=== PATIENT | female | born 2000 | race Caucasian/White ===

== ENCOUNTER 2022-02-04 22:06 | Inpatient (IN) ==
[2022-02-04] MEDS ORDERED: LR 1,000 ML IV 1,000 ML IV ONE ×3 (22:24→23:36)
[2022-02-04 22:33] VITALS: BMI 24.7
[2022-02-04 22:33] LABS: BILIRUBIN,URINE NEGATIVE (NEGATIVE); BLOOD/HEMOGLOBIN,URINE NEGATIVE (NEGATIVE); GLUCOSE, URINE NEGATIVE (NEGATIVE); KETONES,URINE NEGATIVE (NEGATIVE); LEUKOCYTE ESTERASE ,URINE 1+ (NEGATIVE); NITRITES,URINE NEGATIVE (NEGATIVE); PROTEIN,URINE NEGATIVE (NEGATIVE); UROBILINOGEN,URINE NORMAL (NORMAL)
[2022-02-04 22:35] LABS: AMNISURE ROM TEST THERE IS A RUPTURE (NO RUPTURE)
[2022-02-04 22:38] LABS: APPEARANCE,URINE CLEAR (CLEAR); COLOR,URINE YELLOW (YELLOW)
[2022-02-04 22:39] LABS: BACTERIA,URINE TRACE /HPF (NEGATIVE); SQUAMOUS EPITHELIAL CELL,UR MODERATE /HPF (NEGATIVE)
[2022-02-04] MEDS ORDERED: ANCEF VIAL 1 GRAM IVP ONE (23:15)
[2022-02-04] MEDS ORDERED: PEPCID 20 MG VIAL IVP ONE (23:17)
[2022-02-04] MEDS ORDERED: ZOFRAN INJ 4 MG VIAL IVP ONE (23:17)
[2022-02-04] MEDS ORDERED: REGLAN INJ 10 MG VIAL IVP ONE (23:18)
[2022-02-04] MEDS ORDERED: ZOFRAN INJ 4 MG VIAL IVP PRN (23:19)
[2022-02-04] MEDS ORDERED: BENADRYL INJ 50 MG VIAL IVP PRN (23:19)
[2022-02-04] MEDS ORDERED: TORADOL 30 MG VIAL IVP PRN (23:19)
[2022-02-04 23:23] LABS: MEAN PLATELET VOLUME 8.6 fL (7.4-11.0)
[2022-02-04 23:29] LABS: BASOPHILS % (AUTO) 0.5 % (0.2-1.0); EOSINOPHILS # (AUTO) 0.3 x10^3/uL (0.0-0.2); EOSINOPHILS % (AUTO) 3.5 % (0.9-2.9); HEMOGLOBIN 10.6 g/dL (12.0-16.0); LYMPHOCYTES # (AUTO) 1.7 X10^3/uL (1.3-2.9); LYMPHOCYTES % (AUTO) 22.6 % (21.0-51.0); MEAN CORPUSCULAR HEMOGLOBIN 26.1 pg (27.0-34.0); MEAN CORPUSCULAR VOLUME 79.1 fL (80.0-100.0); MONOCYTES # (AUTO) 0.6 x10^3/uL (0.3-0.8); MONOCYTES % (AUTO) 7.8 % (0.0-13.0); NEUTROPHILS # (AUTO) 4.9 x10^3/uL (2.2-4.8); NEUTROPHILS % (AUTO) 65.6 % (42.0-75.0); RED BLOOD COUNT 4.05 X10^6/uL (3.5-5.4); RED CELL DISTRIBUTION WIDTH 16.4 % (11.6-16.5); WHITE BLOOD COUNT 7.5 X10^3/uL (3.6-10.0)
[2022-02-04 23:31] LABS: ALANINE AMINOTRANSFERASE 10 Units/L (12-78); ALBUMIN 2.4 g/dL (3.4-5.0); ALKALINE PHOSPHATASE 177 Units/L (45-150); ASPARTATE AMINO TRANSFERASE 19 Units/L (15-37); BLOOD UREA NITROGEN 7 mg/dL (7-18); CALCIUM 8.6 mg/dL (8.5-10.1); CARBON DIOXIDE 22.6 mmol/L (21-32); CHLORIDE 107 mmol/L (98-107); COR CA(FOR HYPOALB) 9.9 mg/dL (8.5-10.1); CREATININE 0.69 mg/dL (0.55-1.02); SODIUM 138 mmol/L (136-145); TOTAL PROTEIN 6.4 g/dL (6.4-8.2); eGFR NON BLACK RACES > 60 (>60)
[2022-02-04] MEDS ORDERED: REGLAN INJ 10 MG VIAL ONE (23:35)
[2022-02-04] MEDS ORDERED: ZOFRAN INJ 4 MG VIAL ONE (23:36)
[2022-02-04] MEDS ORDERED: D5 1/2 NS 1,000 mL + PITOCIN 20 UNITS/L IV 20 UNITS/1,000 ML BAG IV ONE (23:36)
[2022-02-04] MEDS ORDERED: PEPCID 20 MG VIAL ONE (23:36)
[2022-02-04] MEDS ORDERED: NS 100 ML IV 200 ML ONE (23:36)
[2022-02-04] MEDS ORDERED: ANCEF VIAL 1 GRAM ONE (23:36)
[2022-02-04] MEDS ORDERED: D5 1/2 NS 1,000 ML 1,000 ML IV SCH ×2 (23:45)
[2022-02-04] MEDS ORDERED: MARCAINE SPINAL ONE (23:54)
[2022-02-04] MEDS ORDERED: DILAUDID INJ ONE (23:55)
[2022-02-04] MEDS ORDERED: XYLOCAINE-MPF 1% ONE (23:55)
[2022-02-05] MEDS ORDERED: NEO-SYNEPHRINE INJ ONE (00:27)
[2022-02-05] MEDS ORDERED: EPHEDRINE SULFATE INJ ONE (00:27)
[2022-02-05] MEDS: PERCOCET TAB 5/325 MG PO PRN ×2 (00:30→19:21)
[2022-02-05] MEDS ORDERED: PITOCIN ONE ×2 (00:41→07:31)
[2022-02-05] MEDS ORDERED: NARCAN INJ ONE (01:00)
[2022-02-05] MEDS ORDERED: PHENERGAN INJ 25 MG IM PRN ×2 (01:10→01:52)
[2022-02-05] MEDS ORDERED: ZOFRAN INJ 4 MG VIAL IVP PRN (01:10)
[2022-02-05] MEDS ORDERED: DILAUDID INJ IVP PRN (01:10)
[2022-02-05] MEDS ORDERED: BENADRYL INJ 50 MG VIAL IVP PRN (01:10)
[2022-02-05] MEDS ORDERED: BARHEMSYS INJ IVP PRN (01:10)
[2022-02-05] MEDS ORDERED: ADACEL or BOOSTRIX TDaP VACCINE IM ONE ×2 (01:52→21:47)
[2022-02-05] MEDS ORDERED: MYLICON TAB 80 MG CHEW PO PRN (01:52)
[2022-02-05] MEDS ORDERED: D5 1/2 NS 1,000 ML 1,000 ML with PITOCIN 20 UNITS IV SCH ×2 (02:00)
[2022-02-05] MEDS: MOTRIN TAB 800 MG PO PRN ×2 (03:21→16:13)
[2022-02-05 04:13] LABS: HEMATOCRIT 34.5 % (36.0-47.0); HEMOGLOBIN 11.2 g/dL (12.0-16.0)
[2022-02-05] MEDS: D5 1/2 NS 1,000 ML 1,000 ML with PITOCIN 20 UNITS IV SCH ×4 (07:15→16:05)
[2022-02-05] MEDS ORDERED: D5 1/2 NS 1,000 ML 1,000 ML IV ONE (07:31)
[2022-02-05] MEDS: PRENATAL PLUS PO SCH (09:28)
[2022-02-05] MEDS ORDERED: METHERGINE PO SCH (09:30)
[2022-02-05] MEDS ORDERED: D5 1/2 NS 1,000 mL + PITOCIN 20 UNITS/L IV 20 UNITS/1,000 ML BAG IV ONE (09:30)
[2022-02-05] MEDS: METHERGINE PO SCH ×4 (09:50→20:00)
[2022-02-05] MEDS ORDERED: PERCOCET TAB 5/325 MG PO PRN (13:35)
[2022-02-05] MEDS ORDERED: COLACE CAP 100 MG PO SCH (21:00)
[2022-02-06] MEDS: D5 1/2 NS 1,000 ML 1,000 ML with PITOCIN 20 UNITS IV SCH ×4 (00:31→09:59)
[2022-02-06] MEDS: PERCOCET TAB 5/325 MG PO PRN (05:55)
[2022-02-06 06:12] LABS: BASOPHILS % (AUTO) 0.3 % (0.2-1.0); EOSINOPHILS # (AUTO) 0.3 x10^3/uL (0.0-0.2); EOSINOPHILS % (AUTO) 2.8 % (0.9-2.9); HEMATOCRIT 30.2 % (36.0-47.0); HEMOGLOBIN 10.1 g/dL (12.0-16.0); LYMPHOCYTES # (AUTO) 1.6 X10^3/uL (1.3-2.9); LYMPHOCYTES % (AUTO) 15.1 % (21.0-51.0); MEAN CORPUSCULAR HEMOGLOBIN 26.1 pg (27.0-34.0); MEAN CORPUSCULAR HGB CONC 33.3 g/dL (33.0-35.0); MEAN CORPUSCULAR VOLUME 78.5 fL (80.0-100.0); MEAN PLATELET VOLUME 8.2 fL (7.4-11.0); MONOCYTES % (AUTO) 9.2 % (0.0-13.0); NEUTROPHILS # (AUTO) 7.9 x10^3/uL (2.2-4.8); NEUTROPHILS % (AUTO) 72.6 % (42.0-75.0); RED BLOOD COUNT 3.85 X10^6/uL (3.5-5.4); RED CELL DISTRIBUTION WIDTH 16.5 % (11.6-16.5); WHITE BLOOD COUNT 10.8 X10^3/uL (3.6-10.0)
[2022-02-06] MEDS: PRENATAL PLUS PO SCH (08:23)
[2022-02-06] MEDS: METHERGINE PO SCH ×2 (08:36→12:25)
[2022-02-06] MEDS ORDERED: DULCOLAX SUPPOSITORY 10 MG RECTAL ONE (09:35)
[2022-02-06 13:27] VITALS: BP 110/52
== END 2022-02-06 13:00 | disposition home or self-care (01) | DRG 788 ==
LOC: ER 22:06 → LD 23:00 → MED/SURG 02-05 01:45
PROVIDERS: ADMIT Obstetrics & Gynecology Obstetrics; ATTEND Obstetrics & Gynecology Obstetrics

== ENCOUNTER 2022-02-09 15:43 | Observation (INO) ==
--- NOTE | 2022-02-09 15:58 | DR.SOBA ---
HPI Time Seen Time Seen by Provider: 02/09/22 15:54 Complaints Chief Complaint Doctors Comments: 21 y/o female, s/p 5 days ago, presents with shortness of breath since last pm. Gradual onset, steadiy worsening. + slight cough, not productive. Running a low grade temp here. Denies chest pain, leg pain or swelling. + distant h/o asthma as a child. Having pain of the site. COVID-19 Coronavirus risk:travel/contact w/high risk person: No Has patient experienced Coronavirus symptoms: No Reviewed Nurses Notes Reviewed: Yes Source History Provided: Patient Mode of Arrival Mode of Arrival: Wheelchair PMH PMH Past Medical History: Anemia Past Surgical History: Yes Surgical History: Social History Do you use any recreational Drugs:: No ROS Review of Systems Constitutional: Fever (low grade) Eyes: No Symptoms Reported ENTM: No Symptoms Reported Respiratoy: Non-Productive Cough and Short of Breath Cardiovascular: No Symptoms Reported Gastrointestinal/Abdominal: Abdominal Pain and Nausea Genitourinary: No Symptoms Reported Neurological: No Symptoms Reported Musculoskeletal: No Symptoms Reported Integumentary: No Symptoms Reported Hematologic/Lymphatic: No Symptoms Reported Psychiatric: No Symptoms Reported All Other Systems: Reviewed and Negative PE Vital Signs Vitals: Temperature 99.4 F Pulse Rate 101 Respiratory Rate 42 Blood Pressure [Left Arm] 110/52 Blood Pressure 134/75 O2 Sat by Pulse Oximetry 98 General Limitations: No Limitations General Appearance: In Distress and Other (pulse ox on RA 90%) Head Head Exam: Normal Inspection Eyes Eye exam: PERRL and EOMI ENT ENT Exam: Mucous Membranes Moist Neck Neck Exam: Normal Inspection Chest Chest Inspection: Normal Inspection Respiratory Respiratory Exam: Respiratory Distress (mild) Respiratory Exam: Bilateral: Decreased Breath Sounds Cardiovascular Cardiovascular Exam: Regular Rate, Normal Rhythm and Normal Heart Sounds Abdominal Exam Abdominal Exam: Soft and Tenderness (across lower abdomen, around wound) Extremities Extremities Exam: Normal Inspection and Full ROM; negative Tenderness and Edema Back Back Exam: Normal Inspection Neurologic Neurological Exam: Alert, Oriented X3 and CN II-XII Intact; negative Motor Sensory Deficit Psychiatric Psychiatric Exam: Normal Affect Skin Skin Exam: Warm and Dry MDM Differential Diagnosis Differential Diagnosis: Pneumonia, Pneumothorax and Pulmonary embolism Differential Diagnosis Comment:: asthma, p/p cardiomyopathy COURSE Treatment Treatment: 21 y/o female, 5 days p/p via , presents with worsening dyspnea since yesterday. Pulse ox 90% on RA. Placed on O2, with good effect. W/u initiated. 1756 - w/u shows mild anemia, Hgb 10.8, and a normal WBC. Chemistries acceptable. CXR - clear, normal cardiac silhouette. B-SUPERIOR COURT CLERK elevated to 510, tropnin elevated to 172. Has a normal CK-MB. Chemistries acceptable. D-dimer elvated to 3.3 (but recent , surgery). CTA chest obtained, no obvious PE. Does have increased haziness of R base, concerning for possible pneumonia. Clinical presentation concerning for developing post- cardiomyopathy. Given duoneb here (distant h/o asthma). Given IV lasix x 1, IV rocephin for possibe pneumonia. Discussed with her covering MD, Dr Hernandes, will admit. ROR Labs Reviewed Laboratory Results Reviewed?: Yes Result Diagrams: 02/09/22 16:04 02/09/22 16:04 Laboratory: WBC 9.8 X10^3/uL (3.6-10.0) 02/09/22 16:04 RBC 4.15 X10^6/uL (3.5-5.4) 02/09/22 16:04 Hgb 10.8 g/dL (12.0-16.0) L 02/09/22 16:04 Hct 32.1 % (36.0-47.0) L 02/09/22 16:04 MCV 77.5 fL (80.0-100.0) L 02/09/22 16:04 MCH 26.0 pg (27.0-34.0) L 02/09/22 16:04 MCHC 33.5 g/dL (33.0-35.0) 02/09/22 16:04 RDW 16.2 % (11.6-16.5) 02/09/22 16:04 Plt Count 479 X10^3/uL (150.0-450.0) H 02/09/22 16:04 MPV 6.9 fL (7.4-11.0) L 02/09/22 16:04 Neut % (Auto) 77.7 % (42.0-75.0) H 02/09/22 16:04 Lymph % (Auto) 12.4 % (21.0-51.0) L 02/09/22 16:04 [place] % (Auto) 9.2 % (0.0-13.0) 02/09/22 16:04 Eos % (Auto) 0.4 % (0.9-2.9) L 02/09/22 16:04 Baso % (Auto) 0.3 % (0.2-1.0) 02/09/22 16:04 Neut # (Auto) 7.6 x10^3/uL (2.2-4.8) H 02/09/22 16:04 Lymph # (Auto) 1.2 X10^3/uL (1.3-2.9) L 02/09/22 16:04 [place] # (Auto) 0.9 x10^3/uL (0.3-0.8) H 02/09/22 16:04 Eos # (Auto) 0.0 x10^3/uL (0.0-0.2) 02/09/22 16:04 Baso # (Auto) 0.0 X10^3/uL (0.0-0.1) 02/09/22 16:04 Absolute Nucleated RBC 0.3 /100WBC 02/09/22 16:04 D-Dimer 3.27 ug/ml (0.0-0.57) H* 02/09/22 16:04 Sodium 145 mmol/L (136-145) 02/09/22 16:04 Corrected Sodium TNP 02/09/22 16:04 Potassium 3.4 mmol/L (3.5-5.1) L 02/09/22 16:04 Chloride 108 mmol/L (98-107) H 02/09/22 16:04 Carbon Dioxide 25.0 mmol/L (21-32) 02/09/22 16:04 BUN 12 mg/dL (7-18) 02/09/22 16:04 Creatinine 0.58 mg/dL (0.55-1.02) 02/09/22 16:04 Est GFR (MDRD) Af Amer > 60 (>60) 02/09/22 16:04 Est GFR (MDRD) Non-Af > 60 (>60) 02/09/22 16:04 Glucose 86 mg/dL (65-99) 02/09/22 16:04 Calcium 8.5 mg/dL (8.5-10.1) 02/09/22 16:04 Corrected Calcium 9.8 mg/dL (8.5-10.1) 02/09/22 16:04 Total Bilirubin 0.50 mg/dL (0.2-1.0) 02/09/22 16:04 AST 21 Units/L (15-37) 02/09/22 16:04 ALT 17 Units/L (12-78) 02/09/22 16:04 Alkaline Phosphatase 126 Units/L (45-150) 02/09/22 16:04 Creatine Kinase 135 Units/L (26-192) 02/09/22 16:04 CK-MB (CK-2) 1.3 ng/mL (0-4.0) 02/09/22 16:04 CK/CKMB % Calc 1.0 % (<4) 02/09/22 16:04 Troponin I High Sens 172.3 ng/L (4.0-60.0) H* 02/09/22 16:04 B-Natriuretic Peptide 510 pg/mL (0-79) H* 02/09/22 16:04 Total Protein 6.6 g/dL (6.4-8.2) 02/09/22 16:04 Albumin 2.4 g/dL (3.4-5.0) L 02/09/22 16:04 Globulin 4.2 g/dL (2.5-4.5) 02/09/22 16:04 Albumin/Globulin Ratio 0.6 Ratio (1.1-2.1) L 02/09/22 16:04 Other Results Comments: See lab comments under "course". XRAY XRAY Interpreted by: Both X-ray Results: CXR - clear. CTA with R haziness, concerning for possible pneumonia. EKG Rate: 98 [place]: Normal Rhythm: NSR Block: RBBB (incomplete) Hypertrophy: LAE ST: Nonsp Opioid Opioid Risk Tool Age (Ethan box if 16-45): Yes History of Preadolescent Sexual Abuse: No Total: 1 Total Score Risk Category: Low Risk Copyright: [facility] predicting aberrant behaviors Diagnosis Discharge Problem: cardiomyopathy, Hypoxia
[2022-02-09 16:17] LABS: BASOPHILS % (AUTO) 0.3 % (0.2-1.0); EOSINOPHILS % (AUTO) 0.4 % (0.9-2.9); HEMATOCRIT 32.1 % (36.0-47.0); HEMOGLOBIN 10.8 g/dL (12.0-16.0); LYMPHOCYTES # (AUTO) 1.2 X10^3/uL (1.3-2.9); LYMPHOCYTES % (AUTO) 12.4 % (21.0-51.0); MEAN CORPUSCULAR HGB CONC 33.5 g/dL (33.0-35.0); MEAN CORPUSCULAR VOLUME 77.5 fL (80.0-100.0); MEAN PLATELET VOLUME 6.9 fL (7.4-11.0); MONOCYTES # (AUTO) 0.9 x10^3/uL (0.3-0.8); MONOCYTES % (AUTO) 9.2 % (0.0-13.0); NEUTROPHILS # (AUTO) 7.6 x10^3/uL (2.2-4.8); NEUTROPHILS % (AUTO) 77.7 % (42.0-75.0); RED BLOOD COUNT 4.15 X10^6/uL (3.5-5.4); RED CELL DISTRIBUTION WIDTH 16.2 % (11.6-16.5); WHITE BLOOD COUNT 9.8 X10^3/uL (3.6-10.0)
[2022-02-09] MEDS ORDERED: DUONEB 0.5 MG/3 MG (3 mL) NEB ONE ×2 (16:39→17:16)
[2022-02-09 16:41] LABS: ALANINE AMINOTRANSFERASE 17 Units/L (12-78); ALBUMIN 2.4 g/dL (3.4-5.0); ALKALINE PHOSPHATASE 126 Units/L (45-150); ASPARTATE AMINO TRANSFERASE 21 Units/L (15-37); BLOOD UREA NITROGEN 12 mg/dL (7-18); CALCIUM 8.5 mg/dL (8.5-10.1); CHLORIDE 108 mmol/L (98-107); COR CA(FOR HYPOALB) 9.8 mg/dL (8.5-10.1); CREATINE KINASE 135 Units/L (26-192); CREATINE KINASE MB 1.3 ng/mL (0-4.0); CREATININE 0.58 mg/dL (0.55-1.02); SODIUM 145 mmol/L (136-145); TOTAL PROTEIN 6.6 g/dL (6.4-8.2); eGFR NON BLACK RACES > 60 (>60)
[2022-02-09] MEDS ORDERED: NS 100 ML IV 100 ML ONE ×2 (16:55→18:06)
--- NOTE | 2022-02-09 17:44 | CT ---
EXAM: CTA CHEST WITH INTRAVENOUS CONTRASTHISTORY: Shortness of breath. Elevated D-dimer.TECHNIQUE: Spiral axial CT images are obtained through the chest with the administration of intravenous contrast. Coronal, sagittal and 3D MIP images are reformatted.DOSIMETRY: Total DLP 390.4 mGycm; CTDI 30.8 mGyCOMPARISON: None available.FINDINGS:CARDIOVASCULAR: There is no evidence for pulmonary embolic disease. The heart size and mediastinal vascular structures are within normal limits. There is no significant aortic or coronary atherosclerosis seen. No thoracic aortic aneurysm or dissection is noted.MEDIASTINUM AND MARELY: No mass lesion, lymphadenopathy, emphysema, or abnormal fluid collection is seen.LUNGS: There are patchy groundglass lung parenchymal infiltrates in the right lower lobe, especially in the posterior/anterior/medial segments in keeping with acute pneumonia in the appropriate clinical setting. Recommend clinical correlation and appropriate follow-up evaluation to ensure clearance as clinically warranted. There is no lung mass, lung nodule, or endobronchial obstructing lesion seen. No pleural effusion or pneumothorax is evident.CHEST WALL: There are no chest wall lesions seen. The visualized bony structures are within normal limits. No axillary lymphadenopathy is noted.UPPER ABDOMEN: Limited views through the upper abdomen demonstrate no gross acute abnormality.IMPRESSION:1. No evidence for pulmonary embolic disease.2. No evidence for aortic aneurysm or aortic dissection.3. Patchy groundglass lung parenchymal infiltrates in the right lower lobe, especially in the posterior/anterior/medial segments in keeping with acute pneumonia in the appropriate clinical setting. Recommend clinical correlation and appropriate follow-up evaluation to ensure clearance as clinically warranted.4. No endobronchial obstructing lesion, pleural effusion, or pneumothorax seen.Electronically signed by: Phani Pruitt (February 09, 2022 17:42:47)
[2022-02-09] MEDS ORDERED: LASIX IVP ONE ×2 (17:52→18:06)
[2022-02-09] MEDS ORDERED: ROCEPHIN VIAL 1 GRAM ONE (18:06)
[2022-02-09] MEDS: ROCEPHIN VIAL 1 GRAM 1 G in NS 100 ML IV 100 ML IV SCH (18:26)
--- NOTE | 2022-02-09 19:20 | RAD ---
HISTORYShortness of breath - on 02/05/2022 HX: ASthma.br.br.br.br.br VIEWCOMPARISONNone.FINDINGSThere are multiple EKG leads and wires overlying the patient. The trachea is midline. The cardiac silhouette is unremarkable. The lungs are clear without focal infiltrate or effusion. The bony thorax is unremarkable.IMPRESSIONNo acute cardiopulmonary findings .Electronically signed by: Alexa Kelly (February 09, 2022 19:19:11)
[2022-02-09] MEDS ORDERED: MOTRIN TAB 800 MG PO PRN (19:28)
[2022-02-09] MEDS ORDERED: PERCOCET TAB 5/325 MG PO PRN (19:28)
[2022-02-09] MEDS: DUONEB 0.5 MG/3 MG (3 mL) NEB SCH (20:59)
[2022-02-09] MEDS: PULMICORT NEB TX 0.5 MG NEB SCH (20:59)
[2022-02-09] MEDS ORDERED: DUONEB 0.5 MG/3 MG (3 mL) NEB SCH (21:00)
[2022-02-09] MEDS ORDERED: SALINE 3% 15 ML NEB TX NEB ONE ×2 (21:00)
[2022-02-09] MEDS ORDERED: PULMICORT NEB TX 0.5 MG NEB SCH (21:00)
[2022-02-09] MEDS: COLACE CAP 100 MG PO SCH (21:00)
[2022-02-09 21:07] VITALS: BMI 22.6
[2022-02-10 05:07] LABS: BASOPHILS # (AUTO) 0.1 X10^3/uL (0.0-0.1); BASOPHILS % (AUTO) 0.5 % (0.2-1.0); EOSINOPHILS # (AUTO) 0.2 x10^3/uL (0.0-0.2); EOSINOPHILS % (AUTO) 1.9 % (0.9-2.9); HEMATOCRIT 29.7 % (36.0-47.0); HEMOGLOBIN 10.1 g/dL (12.0-16.0); LYMPHOCYTES # (AUTO) 1.3 X10^3/uL (1.3-2.9); MEAN CORPUSCULAR HEMOGLOBIN 26.1 pg (27.0-34.0); MEAN CORPUSCULAR HGB CONC 33.8 g/dL (33.0-35.0); MEAN CORPUSCULAR VOLUME 77.1 fL (80.0-100.0); MEAN PLATELET VOLUME 7.1 fL (7.4-11.0); MONOCYTES # (AUTO) 1.3 x10^3/uL (0.3-0.8); MONOCYTES % (AUTO) 12.8 % (0.0-13.0); NEUTROPHILS % (AUTO) 71.8 % (42.0-75.0); RED BLOOD COUNT 3.85 X10^6/uL (3.5-5.4); RED CELL DISTRIBUTION WIDTH 16.6 % (11.6-16.5); WHITE BLOOD COUNT 9.8 X10^3/uL (3.6-10.0)
[2022-02-10 05:38] LABS: ALANINE AMINOTRANSFERASE 15 Units/L (12-78); ALBUMIN 2.2 g/dL (3.4-5.0); ALKALINE PHOSPHATASE 111 Units/L (45-150); ASPARTATE AMINO TRANSFERASE 19 Units/L (15-37); BLOOD UREA NITROGEN 10 mg/dL (7-18); CALCIUM 7.7 mg/dL (8.5-10.1); CHLORIDE 106 mmol/L (98-107); CKMB % 0.9 % (<4); COR CA(FOR HYPOALB) 9.1 mg/dL (8.5-10.1); COR NA(FOR HYPERGLY) 142 mmol/L (136-145); CREATINE KINASE 108 Units/L (26-192); CREATINE KINASE MB < 1.0 ng/mL (0-4.0); CREATININE 0.67 mg/dL (0.55-1.02); SODIUM 142 mmol/L (136-145); TOTAL PROTEIN 6.1 g/dL (6.4-8.2); eGFR NON BLACK RACES > 60 (>60)
[2022-02-10] MEDS ORDERED: MICRO K EXTEN CAP 10 MEQ PO PRN (06:00)
[2022-02-10] MEDS ORDERED: K-RIDER 10 MEQ/NS 100 ML 10 MEQ/100 ML BAG IV PRN (06:00)
[2022-02-10] MEDS ORDERED: POTASSIUM CHL 60 MEQ/NS 0.45% 500 ML IV PRN (06:00)
[2022-02-10] MEDS ORDERED: POTASSIUM CHLORIDE LIQ 20 MEQ UDC PO PRN (06:00)
[2022-02-10] MEDS ORDERED: KLOR-CON PO PRN (06:00)
[2022-02-10] MEDS ORDERED: POTASSIUM CHL 40 MEQ/NS 0.45% 500 ML IV PRN (06:00)
[2022-02-10] MEDS: MAGNESIUM SULFATE 1 GRAM/100 mL PREMIX 1 G/100 ML BAG IV PRN ×2 (06:30→08:09)
[2022-02-10] MEDS: K-DUR TAB 20 MEQ PO PRN ×2 (06:31→10:25)
--- NOTE | 2022-02-10 06:46 | RAD ---
HISTORYHypoxiaSTUDYChest AP [id number]/08/2022FINDINGSHear t size is normal. Marleny are normal. Lungs are well inflated. There has been interval development of a right lower lobe perihilar infiltrates since the prior examination. This would seem most consistent with pneumonia. Remainder of the lung gates are clear. No pleural effusions are identified. Bony thorax is unremarkable.IMPRESSIONInterval development of a right-sided perihilar lower lobe infiltrate most consistent with pneumoniaElectronically signed by: AMRIK ROBLES (February 10, 2022 06:44:58)
[2022-02-10] MEDS: PULMICORT NEB TX 0.5 MG NEB SCH ×2 (09:00→20:47)
[2022-02-10] MEDS: DUONEB 0.5 MG/3 MG (3 mL) NEB SCH ×4 (09:00→20:47)
[2022-02-10] MEDS: ROCEPHIN VIAL 1 GRAM 1 G in NS 100 ML IV 100 ML IV SCH (10:06)
[2022-02-10] MEDS ORDERED: TORADOL 30 MG VIAL IVP PRN (13:07)
[2022-02-10] MEDS: COLACE CAP 100 MG PO SCH (20:52)
[2022-02-10] MEDS ORDERED: CORDARONE TAB 200 MG PO SCH (21:00)
[2022-02-11 05:17] LABS: BASOPHILS % (AUTO) 0.7 % (0.2-1.0); EOSINOPHILS # (AUTO) 0.6 x10^3/uL (0.0-0.2); EOSINOPHILS % (AUTO) 10.1 % (0.9-2.9); HEMOGLOBIN 9.8 g/dL (12.0-16.0); LYMPHOCYTES # (AUTO) 1.5 X10^3/uL (1.3-2.9); LYMPHOCYTES % (AUTO) 24.4 % (21.0-51.0); MEAN CORPUSCULAR HEMOGLOBIN 26.3 pg (27.0-34.0); MEAN CORPUSCULAR HGB CONC 33.7 g/dL (33.0-35.0); MEAN CORPUSCULAR VOLUME 78.1 fL (80.0-100.0); MEAN PLATELET VOLUME 7.2 fL (7.4-11.0); MONOCYTES # (AUTO) 0.8 x10^3/uL (0.3-0.8); MONOCYTES % (AUTO) 12.7 % (0.0-13.0); NEUTROPHILS # (AUTO) 3.1 x10^3/uL (2.2-4.8); NEUTROPHILS % (AUTO) 52.1 % (42.0-75.0); RED BLOOD COUNT 3.72 X10^6/uL (3.5-5.4); RED CELL DISTRIBUTION WIDTH 16.6 % (11.6-16.5)
[2022-02-11 05:19] LABS: BLOOD UREA NITROGEN 11 mg/dL (7-18); CARBON DIOXIDE 22.2 mmol/L (21-32); CHLORIDE 109 mmol/L (98-107); CREATININE 0.51 mg/dL (0.55-1.02); SODIUM 143 mmol/L (136-145); eGFR NON BLACK RACES > 60 (>60)
[2022-02-11 05:25] LABS: MAGNESIUM 1.5 mg/dL (1.7-2.9)
[2022-02-11 08:17] VITALS: BP 114/63
[2022-02-11] MEDS: PULMICORT NEB TX 0.5 MG NEB SCH (08:56)
[2022-02-11] MEDS: DUONEB 0.5 MG/3 MG (3 mL) NEB SCH (08:56)
[2022-02-11] MEDS: ROCEPHIN VIAL 1 GRAM 1 G in NS 100 ML IV 100 ML IV SCH (09:30)
[2022-02-11 21:20] LABS: ALANINE AMINOTRANSFERASE 14 Units/L (12-78); ALBUMIN 2.2 g/dL (3.4-5.0); ALKALINE PHOSPHATASE 104 Units/L (45-150); ASPARTATE AMINO TRANSFERASE 17 Units/L (15-37); COR CA(FOR HYPOALB) 9.4 mg/dL (8.5-10.1); TOTAL PROTEIN 5.7 g/dL (6.4-8.2)
== END 2022-02-11 11:15 | disposition home or self-care (01) ==
LOC: ICU 15:43 → ER 15:43 → ICU 19:08 → MED/SURG 02-10 14:42
PROVIDERS: ADMIT Internal Medicine; ATTEND Obstetrics & Gynecology Obstetrics